=== PATIENT | male | born 1965 | race Caucasian/White ===

== ENCOUNTER 2016-11-26 23:52 | Emergency (ER) | payer OTHER ==
[~2016-11-26] VITALS: Ht 170.2 cm; Wt 122.1 kg
[~2016-11-26 23:52] MED LIST: GLC500 PO; LISI-461 PO; OMEG10007 PO; SIMV10TA2 PO
[2016-11-27 00:02] VITALS: TEMP 36.7; Ht 170.2 cm; Wt 122.1 kg
[2016-11-27] MEDS ORDERED: KETOROLAC TROMETHAMINE 30 MG/ML VIAL IV STA (00:21)
[2016-11-27] MEDS ORDERED: SODIUM CHLORIDE 0.9% 1000ML 1,000 ML IV STA (00:21)
[2016-11-27] MEDS ORDERED: ONDANSETRON INJ 2 MG/ML 2 ML VIAL IV STA (00:21)
[2016-11-27 00:47] LABS: BASO % 0.2 %; BASO ABS # 0.02 K/uL (0-0.2); COMPLETE YES; EOS % 0.6 %; HEMATOCRIT 39.5 % (42-52); IG% 0.3 %; LYMPH % 16.7 %; LYMPH ABS # 1.77 K/uL (1.2-3.4); MEAN CORPUSCULAR HEMOGLOBIN 30.8 pg (25-34); MEAN CORPUSCULAR HGB CONC 35.4 g/dl (32-36); NEUT % 73.2 %; PLATELET COUNT 276 K/uL (130-400); RED BLOOD COUNT 4.54 M/uL (4.7-6.1); WHITE BLOOD COUNT 10.59 K/uL (4.8-10.8)
--- NOTE | 2016-11-27 00:49 | EMERGENCY ROOM VISIT NOTE ---
History First contact with patient: 00:07 Chief Complaint: KIDNEY STONE Stated Complaint: KIDNEY,PRESSURE ON RECTUM,TIGHT BACK History of Present Illness The patient is a 51 year old male who presents to the Emergency Room with complaints of pain in his back and abdomen. The patient states that since this morning, he has had pain radiating from his back into his abdomen. He also reports dysuria and rectal pressure. He has been having normal bowel movements. He states the pain is a feeling of tightness. He has associated nausea but no vomiting. The pain has been gradually worsening throughout the day. He has no history of similar symptoms. He rates his current discomfort a 10/10. He denies any history of abdominal surgery. He denies any fevers/chills , changes in bowel movements or rectal bleeding. Review of Systems A complete 10 point review of systems was reviewed with the patient with pertinent positives and negatives as per history of present illness. All else were negative. Past Medical/Surgical History Medical Problems: (1) Anxiety (2) Diabetes mellitus type 2 (3) Hypertension Nos (4) Lumbar Disc Displacement Social History Smoking Status: Never Smoker Marital Status: single Occupation Status: employed Current/Historical Medications Scheduled Cefdinir (Omnicef), 1 CAP PO BID Fish Oil ([place]-3), 2-3 CAP PO DAILY Lisinopril (Zestril), 10 MG PO DAILY Metformin HCL (Glucophage *), 1,000 MG PO BID Simvastatin (Zocor), 10 MG PO HS Allergies Coded Allergies: No Known Allergies (Unverified , 04/01/15) Physical Exam Vital Signs Date Time Temp Pulse Resp B/P (MAP) Pulse Ox O2 Delivery O2 Flow Rate FiO2 11/27/16 02:46 83 18 143/74 99 11/27/16 02:00 73 20 151/73 100 Room Air 11/27/16 00:02 36.7 78 18 161/84 99 Room Air Physical Exam VITALS: Vitals are noted on the nurse's note and reviewed by myself. Vital signs stable. GENERAL: This is a 51-year-old male, in no acute distress, nondiaphoretic, well- developed well-nourished. HEART: Regular rate and rhythm without murmurs gallops or rubs. LUNGS: Clear to auscultation bilaterally without wheezes, rales or rhonchi. ABDOMEN: Positive bowel sounds x 4. Soft, mild tenderness over the left lower abdomen. Bilateral CVA tenderness. NEURO: Patient was alert and oriented to person place and time. Medical Decision & Procedures ER Provider Diagnostic Interpretation: CT ABDOMEN & PELVIS: The right lower quadrant appendix is normal in caliber on axial images. There is mild right hydroureteronephrosis. There is bilateral peripelvic and periureteral fat stranding, right worse than left. No visible obstructing radiopaque stone is seen. Findings may represent sequela of recently passed urinary stones versus pyelonephritis. There is mild thickening and haziness of the urinary bladder wall. Correlation with urinalysis is recommended. No free fluid or free air. Status post cholecystectomy. No acute osseous findings. Radiologist: Taran Alaniz MD Laboratory Results 11/27/16 00:35 Red Blood Count 4.54, Mean Corpuscular Volume 87.0, Mean Corpuscular Hemoglobin 30.8, Mean Corpuscular Hemoglobin Concent 35.4, Mean Platelet Volume 10.0, Neutrophils (%) (Auto) 73.2, Lymphocytes (%) (Auto) 16.7, Monocytes (%) (Auto) 9.0, Eosinophils (%) (Auto) 0.6, Basophils (%) (Auto) 0.2, Neutrophils # (Auto) 7.76, Lymphocytes # (Auto) 1.77, Monocytes # (Auto) 0.95, Eosinophils # (Auto) 0.06, Basophils # (Auto) 0.02 11/27/16 00:35 Test 11/27/16 00:30 11/27/16 00:35 Urine Color YELLOW Urine Appearance TURBID (CLEAR) Urine pH 5.0 (4.5-7.5) Urine Specific [place] 1.013 (1.000-1.030) Urine Protein 2+ (NEG) Urine Glucose (UA) NEG (NEG) Urine Ketones NEG (NEG) Urine Occult Blood 3+ (NEG) Urine Nitrite NEG (NEG) Urine Bilirubin NEG (NEG) Urine Urobilinogen NEG (NEG) Urine Leukocyte Esterase LARGE (NEG) Urine WBC (Auto) >30 /hpf (0-5) Urine RBC (Auto) >30 /hpf (0-4) Urine Hyaline Casts (Auto) 1-5 /lpf (0-5) Urine Epithelial Cells (Auto) 5-10 /lpf (0-5) Urine Bacteria (Auto) 4+ (NEG) White Blood Count 10.59 K/uL (4.8-10.8) Red Blood Count 4.54 M/uL (4.7-6.1) Hemoglobin 14.0 g/dL (14.0-18.0) Hematocrit 39.5 % (42-52) Mean Corpuscular Volume 87.0 fL (80-100) Mean Corpuscular Hemoglobin 30.8 pg (25-34) Mean Corpuscular Hemoglobin Concent 35.4 g/dl (32-36) Platelet Count 276 K/uL (130-400) Mean Platelet Volume 10.0 fL (7.4-10.4) Neutrophils (%) (Auto) 73.2 % Lymphocytes (%) (Auto) 16.7 % Monocytes (%) (Auto) 9.0 % Eosinophils (%) (Auto) 0.6 % Basophils (%) (Auto) 0.2 % Neutrophils # (Auto) 7.76 K/uL (1.4-6.5) Lymphocytes # (Auto) 1.77 K/uL (1.2-3.4) Monocytes # (Auto) 0.95 K/uL (0.11-0.59) Eosinophils # (Auto) 0.06 K/uL (0-0.5) Basophils # (Auto) 0.02 K/uL (0-0.2) RDW Standard Deviation 39.7 fL (36.4-46.3) RDW Coefficient of Variation 12.3 % (11.5-14.5) Immature Granulocyte % (Auto) 0.3 % Immature Granulocyte # (Auto) 0.03 K/uL (0.00-0.02) Anion Gap 9.0 mmol/L (3-11) Est Creatinine Clear Calc Drug Dose 118.9 ml/min Estimated GFR () 111.9 Estimated GFR (Non- 96.6 BUN/Creatinine Ratio 16.6 (10-20) Calcium Level 8.6 mg/dl (8.5-10.1) Total Bilirubin 1.0 mg/dl (0.2-1) Aspartate Amino Transf (AST/SGOT) 14 U/L (15-37) Alanine Aminotransferase (ALT/SGPT) 25 U/L (12-78) Alkaline Phosphatase 51 U/L (45-117) Total Protein 6.8 gm/dl (6.4-8.2) Albumin 4.0 gm/dl (3.4-5.0) Globulin 2.8 gm/dl (2.5-4.0) Albumin/Globulin Ratio 1.4 (0.9-2) Lipase 138 U/L (73-393) Medications Administered Medications (Trade) Dose Ordered Sig/Miller Route Start Time Stop Time Status Last Admin Dose Admin Sodium Chloride 1,000 ml @ 999 mls/hr Q1H1M STAT IV 11/27/16 00:21 11/27/16 01:21 DC 11/27/16 00:44 999 MLS/HR Ondansetron HCl (Zofran Inj) 4 mg NOW STAT IV 11/27/16 00:21 11/27/16 00:24 DC 11/27/16 00:44 4 MG Ketorolac Tromethamine (Toradol Inj) 30 mg NOW STAT IV 11/27/16 00:21 11/27/16 00:24 DC 11/27/16 00:44 30 MG Ceftriaxone Sodium (Rocephin Inj) 1 gm NOW STAT IV 11/27/16 01:55 11/27/16 01:56 DC 11/27/16 01:55 1 GM ED Course The patient was evaluated as above. Labs were drawn and IV access was obtained. Patient was medicated with [address] of the abdomen and pelvis was performed and read by radiology as above. Patient was reevaluated and findings were discussed. His pain was significantly improved. He was given 1 g Rocephin. Discharge instructions were reviewed with the patient. The patient verbalized understanding of my assessment and treatment plan and was discharged home in good condition. Medical Decision Differential diagnosis includes UTI, pyelonephritis, kidney stone, gastritis, colitis, pancreatitis among others. The patient is a 51-year-old male who presents today complaining of urinary symptoms, back pain and abdominal pain. Labs revealed no leukocytosis or anemia. Kidney function is within normal limits. Urinalysis was suggestive of infection, with 4+ bacteria and leukocyte esterase. CT did not show any ureteral renal calculi. There was evidence of a possibly recently passed stone versus pyelonephritis. I do feel the patient may be treated as an outpatient, as he is afebrile and has no leukocytosis. His pain has been well controlled with Toradol. He will be placed on Omnicef pending the urine culture. He was instructed to follow-up with his primary care provider this week or return here if he has worsening pain, fevers, vomiting or new/concerning symptoms. Based on the patient's presentation and work up, I feel the patient is stable for outpatient treatment. The patient was educated to return to the emergency department for any worsening of their current condition or new/concerning symptoms. He will follow up with his primary care provider. Medication reconciliation: I attest that I have personally reviewed the patient 's current medication list. Blood pressure screening: Patient was found to have an elevated blood pressure and was referred to their primary care provider for recheck and further treatment. Impression Primary Impression: Pyelonephritis Departure Information Dispostion Home / Self-Care Condition GOOD Prescriptions Cefdinir (OMNICEF) 300 Mg Cap 1 CAP PO BID for 10 Days, #20 CAP Prov: Vikki Crowe ., NGUYEN 11/27/16 Referrals RV. Woodson MD (PCP) Patient Instructions My [facility] Additional Instructions You have been treated in the Emergency Department for a pyelonephritis (kidney infection). You have been prescribed Omnicef to be taken twice daily for a total of 10 days. This is an antibiotic. All antibiotics have the potential to cause diarrhea. Stop this medication and contact a medical provider if you were to develop any significant adverse side effects including: wheezing, shortness of breath, passing out, vomiting, or a diffuse rash. Always take antibiotics as directed and COMPLETE the ENTIRE course regardless of the improvement of your symptoms. Drink plenty of water and stay well hydrated. As with any trip to the Emergency Department, you should follow-up with your Primary Care Provider from today's visit. Return to the emergency department if your symptoms persist despite treatment plan outlined above or if the following symptoms occur: increased fevers, chills , low back pain, nausea/vomiting, or blood in your urine.
[2016-11-27 01:01] LABS: URINE APPEARANCE TURBID (CLEAR); URINE BILIRUBIN NEG (NEG); URINE COLOR YELLOW; URINE NITRITE NEG (NEG); URINE SPECIFIC GRAVITY 1.013 (1.000-1.030); UROBILINOGEN NEG (NEG); ZZUR CULT IF INDIC CLEAN CATCH YES
[2016-11-27 01:06] LABS: BUN/CREATININE RATIO 16.6 (10-20); CALCIUM 8.6 mg/dl (8.5-10.1); CREATININE 0.91 mg/dl (0.60-1.40); POTASSIUM 3.7 mmol/L (3.5-5.1)
[2016-11-27 01:07] LABS: MANUAL MICROSCOPIC REQUIRED? NO; REVIEW REQ? NO
[2016-11-27 01:09] LABS: ALB/GLOB RATIO 1.4 (0.9-2)
[2016-11-27] MEDS ORDERED: CEFTRIAXONE SOD INJ 1 GM ADDVIAL IV STA (01:55)
[2016-11-27] MEDS ORDERED: CEFD300C2 PO (02:40)
[2016-11-27 02:46] VITALS: BP 143/74; PULSE 83; O2SAT 99
--- NOTE | 2016-11-27 07:54 | DIAGNOSTIC IMAGING REPORT ---
ABDOMEN AND PELVIS CT WITHOUT CONTRAST CT DOSE: 1801.14 mGy.cm HISTORY: Bilateral flank pain. Lower abdominal pain. flank pain, nausea, urinary sxs TECHNIQUE: Multiaxial CT images of the abdomen and pelvis were performed without the use of intravenous and oral contrast according to the standard department stone protocol. COMPARISON STUDY: None. FINDINGS: The lung bases are clear. Cholecystectomy. The unenhanced liver, spleen, adrenal glands, and pancreas are unremarkable. No retroperitoneal lymphadenopathy. Suboptimal evaluation for bowel pathology due to the lack of intravenous and oral contrast. However, there is no definite bowel wall thickening or obstruction. A few colonic diverticula. Normal appendix. No renal stones or hydronephrosis. Mild fullness within a right extrarenal pelvis. There is urothelial thickening and periureteral fat stranding bilaterally, right greater than left. No ureteral or bladder stones identified.. Mild bladder wall thickening. IMPRESSION: 1. No renal stones or ureteral stones. No hydronephrosis. 2. Bilateral urothelial thickening and periureteral fat stranding, right greater than left. There is also mild bladder wall thickening. Findings favor a cystitis with associated bilateral pyelitis/pyelonephritis. Recommend correlation with urinalysis. 3. Additional findings as described above Electronically signed by: Rajat Ellis M.D. 11/27/2016 7:53 AM Dictated Date/Time: 11/27/2016 7:48 AM
--- NOTE | 2016-11-29 13:05 | Pharmacy Progress Note ---
ED Pharmacist Culture FollowUp Date of Service: Nov 29, 2016. Patient was sent home with a prescription for cefdinir, which should cover the Serratia fonticola growing from the patient's urine culture, based on reported sensitivity to ceftriaxone.
== END 2016-11-27 02:47 | disposition home or self-care (01) ==
LOC: C.EDB 23:54
DX: N12 Tubulo-interstitial nephritis, not specified as acute or chronic (principal); F41.9 Anxiety disorder, unspecified; E11.9 Type 2 diabetes mellitus without complications; I10 Essential (primary) hypertension; Z79.899 Other long term (current) drug therapy